=== PATIENT | female | born 1955 | race Caucasian/White ===

== ENCOUNTER 2017-12-07 11:25 | Emergency (ER) | payer BC ==
[~2017-12-07 11:25] MED LIST: ALBU8.5H8 IH; AMOX1TAB16 PO; ASCO10007 PO; ASPI-1181 PO; AZIT250T9 PO; BENZ-51 PO; BENZ200C53 PO; CALC-483 PO; ESCI10TA54 PO; FLUT16H NASAL; LISI-613 PO; POTASSIUM PO; PREM3 PO; PROM6.2522 PO
[2017-12-07 11:58] LABS: BASOPHILS % (AUTO) 0.8 % (0.0-5.0); EOSINOPHILS % (AUTO) 1.3 % (0.0-8.0); HEMATOCRIT 40.5 % (36-48); LYMPHOCYTES % (AUTO) 37.1 % (21.0-51.0); MEAN CORPUSCULAR HEMOGLOBIN 34.3 pg (27.0-33.0); MEAN CORPUSCULAR HGB CONC 36.3 g/dL (32.0-36.0); MEAN CORPUSCULAR VOLUME 94.5 fL (79-99); MONOCYTES % (AUTO) 6.3 % (3.0-13.0); NEUTROPHILS % (AUTO) 54.5 % (40.0-77.0); PLATELET COUNT (AUTO) 171 K/uL (130-400); RED BLOOD CELL COUNT(AUTO) 4.28 MIL/uL (4.00-5.50); WHITE BLOOD COUNT (AUTO) 6.7 K/uL (4.8-10.8)
[2017-12-07 12:03] LABS: CARBON DIOXIDE 31 mmol/L (21-32); CHLORIDE 100 mmol/L (101-111); CREATININE 0.6 mg/dL (0.5-1.5); GLOMERULAR FILTR. RATE CALC 108 mL/min (>60); GLUCOSE,RANDOM 110 mg/dL (70-105); POTASSIUM 4.1 mmol/L (3.5-5.1); SODIUM SERUM 137 mmol/L (136-145); UREA NITROGEN, BLOOD 12 mg/dL (7-18)
[2017-12-07 12:07] LABS: INR 0.96 (0.85-1.15); PARTIAL THROMBOPLASTIN TIME 27.5 SEC (26.3-35.5); PROTHROMBIN TIME 10.1 SEC (9.6-11.6)
[2017-12-07 12:22] LABS: ALANINE AMINOTRANSFERASE 93 U/L (12-78); ALBUMIN 3.8 g/dL (3.5-5.0); ASPARTATE AMINOTRANSFERASE 49 U/L (10-37); BILIRUBIN,TOTAL 0.5 mg/dL (0.2-1.0); CREATINE KINASE MB < 0.5 ng/mL (0.5-3.6); CREATINE KINASE, TOTAL 38 U/L (21-232); MYOGLOBIN 32 ng/mL (10-92); TOTAL PROTEIN, SERUM 7.1 g/dL (6.0-8.3)
[2017-12-07 12:26] LABS: B-TYPE NATRIURETIC PEPTIDE 46 pg/mL (0-100)
[2017-12-07] MEDS ORDERED: KETOROLAC TROMETHAMINE 30MG/ML ONE (12:28)
== END 2017-12-07 14:27 | disposition home or self-care (01) ==
LOC: EDH 11:25
DX: R07.89 Other chest pain (principal); I10 Essential (primary) hypertension; Z88.6 Allergy status to analgesic agent
CPT/HCPCS: 36415; 71045; 80053; 82550; 82553; 83874; 83880; 84484 ×2; 85025; 85610; 85730; 93005 ×2; 96374; 99285; J1885

== ENCOUNTER → 2020-02-01 | Outpatient (CLI) | payer BC | END | disposition home or self-care (01) | LOC: RAH 15:16 | PROVIDERS: ATTEND Nurse Practitioner Adult Health | DX: Z12.31 Encounter for screening mammogram for malignant neoplasm of breast (principal) ==

== ENCOUNTER → 2021-02-08 | Outpatient (CLI) | payer MEDICARE ==
[~2021-02-08] MED LIST changes: +ASCO100031 PO; -ASCO10007 PO; -ASPI-1181 PO; +ASPI-1443 PO; -BENZ-51 PO; +BENZ-70 PO; +ESCI-8 PO; -ESCI10TA54 PO; -LISI-613 PO; +LISI20TA24 PO; -PROM6.2522 PO; +PROM6.2523 PO
== END | disposition home or self-care (01) ==
LOC: RAH 10-31 09:03
PROVIDERS: ATTEND Internal Medicine
DX: Z12.31 Encounter for screening mammogram for malignant neoplasm of breast (principal)
CPT/HCPCS: 77067

== ENCOUNTER → 2021-11-21 | Outpatient (CLI) | payer MEDICARE | END | disposition home or self-care (01) | LOC: RAH 10:39 | PROVIDERS: ATTEND Internal Medicine | DX: N32.89 Other specified disorders of bladder (principal); R31.29 Other microscopic hematuria | CPT/HCPCS: 76770 ==

== ENCOUNTER → 2022-10-29 | Outpatient (CLI) | payer MEDICARE ==
[~2022-10-29] MED LIST changes: +BENZ-226 PO; -BENZ-70 PO
== END | disposition home or self-care (01) ==
LOC: RAH 09:19
PROVIDERS: ATTEND Internal Medicine
DX: Z12.31 Encounter for screening mammogram for malignant neoplasm of breast (principal); R92.1 Mammographic calcification found on diagnostic imaging of breast
CPT/HCPCS: 77067

== ENCOUNTER → 2024-02-14 | Outpatient (CLI) | payer OTHER | END | disposition home or self-care (01) | LOC: RAH 11:34 | PROVIDERS: ATTEND Nurse Practitioner Adult Health | DX: Z12.31 Encounter for screening mammogram for malignant neoplasm of breast (principal); R92.333 Mammographic heterogeneous density, bilateral breasts | CPT/HCPCS: 77067 ==

== ENCOUNTER → 2025-04-08 | Outpatient (CLI) | payer OTHER ==
[~2025-04-08] MED LIST changes: -ALBU8.5H8 IH; +AMLO-257 PO; -AMOX1TAB16 PO; -ASCO100031 PO; -AZIT250T9 PO; -BENZ-226 PO; -BENZ200C53 PO; -CALC-483 PO; +CYAN500011 PO; -ESCI-8 PO; +FISH1CAP63 PO; -FLUT16H NASAL; +L.AC1CAP6 PO; -LISI20TA24 PO; +OLME40TA18 PO; -POTASSIUM PO; -PREM3 PO; -PROM6.2523 PO; +ROSU5TAB51 PO; +SERT-439 PO; +THIA100T91 PO; +TRAM-543 PO; +UBID200C18 PO
== END | disposition home or self-care (01) ==
LOC: RAH 07:45
PROVIDERS: ATTEND Nurse Practitioner Adult Health
DX: Z12.31 Encounter for screening mammogram for malignant neoplasm of breast (principal)
CPT/HCPCS: 77067